=== PATIENT | male | born 1965 | race African-American/Black ===

== ENCOUNTER 2017-12-21 09:11 | Emergency (ER) | payer MEDICARE ==
[2017-12-21 09:20] VITALS: BP 136/77
--- NOTE | 2017-12-21 09:29 | ER Document Report ---
ED General - General Mode of Arrival: Ambulatory Information source: Patient - General Chief Complaint: Neck Swelling Stated Complaint: NECK PAIN Notes: 52 y.o. male presents to the ED with LT sided neck edema of onset last night after eating dinner at a friend's house. He reports that He had seafood last night and doesn't usually eat seafood. He denies any recent fever, sore throat, cough or sputum. Pt denies any ear pain. Pt reports taking sinus medication regularly at home. He reports taking Benadryl prior to coming here and reports some relief from his sx. Pt's PCP is Dr. Gray. Pt also reports taking Eliquis regularly at home for defibrillator. (ADI MANRIQUE) - Related Data Allergies/Adverse Reactions: ALEKSANDRA Inhibitors Allergy (Verified 12/21/17 09:14) Cats Adverse Reaction (Uncoded 12/21/17 09:14) Past Medical History - General Information source: Patient - Social History Smoking Status: Never Smoker Chew tobacco use (# tins/day): No Frequency of alcohol use: None Drug Abuse: None Family History: Reviewed & Not Pertinent Patient has suicidal ideation: No Patient has homicidal ideation: No Renal/ Medical History: Denies: Hx Peritoneal Dialysis Review of Systems - Review of Systems Constitutional: See HPI. denies: Fever EENT: See HPI, Other - LT sided neck edema. denies: Ear pain, Throat pain Cardiovascular: No symptoms reported Respiratory: See HPI. denies: Cough, Sputum Gastrointestinal: No symptoms reported Genitourinary: No symptoms reported Male Genitourinary: No symptoms reported Musculoskeletal: No symptoms reported Skin: No symptoms reported Hematologic/Lymphatic: No symptoms reported Neurological/Psychological: No symptoms reported -: Yes All other systems reviewed and negative Physical Exam - Vital signs Vitals: Temp Pulse Resp BP Pulse Ox 97.5 F 71 16 136/77 H 99 12/21/17 09:18 12/21/17 09:18 12/21/17 09:18 12/21/17 09:18 12/21/17 09:18 - Notes Notes: Physical Exam: General: Alert, appears well. HEENT: Normocephalic. Atraumatic. PERRL. Extraocular movements intact. Oropharynx clear, no edema to tongue or throat. LT submandibular gland with minor edema, no pain with palpation. Neck: Supple. Non-tender. Respiratory: No respiratory distress. Clear and equal breath sounds bilaterally. No stridor. Cardiovascular: Regular rate and rhythm. Abdominal: Normal Inspection. Non-tender. No distension. Normal Bowel Sounds. Back: Non-tender. No deformity or step off. Extremities: Moves all four extremities. Upper extremities: Normal inspection. Normal ROM. Lower extremities: Normal inspection. No edema. Normal ROM. Neurological: Normal cognition. AAOx3. Normal speech. Psychological: Normal affect. Normal Mood. Skin: Warm. Dry. Normal color. (ADI MANRIQUE) Course - Re-evaluation Re-evalutation: 12/21/17 09:30 She well-appearing in no acute distress has minor submandibular lymphadenopathy on the left with no evidence of Maulik angina. No recent fevers or illnesses to suggest infectious in nature. He does not have any a sore throat either Benadryl helped with the symptoms. Neha and her friends house unknown substance that he thinks may cause this allergic reaction. He has no rashes on his body. He has normal vitals. Discussed with patient to use Benadryl every 6 hours as needed and he can use Zantac twice a day as well. Return precautions provided any worsening of symptoms problem swallowing tongue swelling to return for reevaluation. (TI HUERTAS) - Vital Signs Vital signs: Temp Pulse Resp BP Pulse Ox 97.5 F 71 16 136/77 H 99 12/21/17 09:18 12/21/17 09:18 12/21/17 09:18 12/21/17 09:18 12/21/17 09:18 Discharge - Discharge Clinical Impression: Submandibular gland swelling Disposition: HOME, SELF-CARE Additional Instructions: 1 tablet to 2 tablets of Benadryl every 6 hours as needed and you can use Zantac 150 mg twice a day. Return to the emergency department if worsening of symptoms, development of fevers, or any other concerns Scribe Attestation: 12/21/17 20:00 I personally performed the services described documentation, reviewed and edited the documentation which was dictated to describe my presence, and it accurately records my words and actions. (TI HUERTAS) Scribe Documentation - Scribe Written by Scribe:: Shaggy Kauffman 12/21/17 [id number] acting as scribe for :: Caden
== END 2017-12-21 09:47 | disposition home or self-care (01) ==
LOC: ER 09:11
DX: R59.0 Localized enlarged lymph nodes (principal); Z79.899 Other long term (current) drug therapy; Z79.01 Long term (current) use of anticoagulants; Z95.810 Presence of automatic (implantable) cardiac defibrillator; Z88.8 Allergy status to other drugs, medicaments and biological substances
CPT/HCPCS: 99283